=== PATIENT | male | born 1965 | race Caucasian/White ===

== ENCOUNTER 2018-11-15 13:56 | Emergency (ER) | payer BC ==
[2018-11-15] MEDS ORDERED: Bacitracin Oint 1 GM U/D Packet TOP ONE (14:17)
[2018-11-15] MEDS ORDERED: Diphtheria,Pertussis(Acell),Tetanus Vaccine 0.5 ML SDV IM ONE (14:17)
[2018-11-15] MEDS ORDERED: Lidocaine 1% 30 ML SDV INJECT ONE (14:17)
[2018-11-15] MEDS ORDERED: Acetaminophen/HYDROcodone 325-5 MG Tab PO ONE (14:53)
--- NOTE | 2018-11-15 14:58 | CR ---
Clinical history: 53-year-old male injured tilted dropped on toe. Interpretation: Abnormal. Transverse a motion of the terminal tuft distal phalanx right great toe and distal half of the distal phalanx adjacent second toe. Associated soft tissue swelling. Neuroma or old surgery eroding the head of the third metatarsal. Chronic arthritic changes first metatarsal-phalangeal and DIP joints of the right forefoot. Leta's bunion lateral aspect. CONCLUSION: Terminal tuft fracture distal phalanx right great and adjacent second toes.
--- NOTE | 2018-11-15 15:32 | EDM.PDOC ---
ED HPI GENERAL MEDICAL PROBLEM - General Chief Complaint: Lower Extremity Injury/Pain Stated Complaint: HYDROLIC LIFT FELL ON FOOT/TOES Time Seen by Provider: 11/15/18 14:20 Source of Information: Reports: Patient, Family, RN, RN Notes Reviewed History Limitations: Reports: No Limitations - History of Present Illness INITIAL COMMENTS - FREE TEXT/NARRATIVE: Pt to ER with c/o pain to right great toe and foot. Pt states he dropped a hydraulic lift on the right foot. Patient states this occurred about 1100. Pt states he has not had a tetanus shot in the last 10 years. Rates pain 8/10 at times, down to 4/10 at times. Onset: Today, Sudden Right Feet Pain Score (Numeric/FACES): 6 - Related Data Allergies Allergy/AdvReac Type Severity Reaction Status Date / Time No Known Allergies Allergy Verified 11/15/18 14:09 Home Meds: Home Meds Naproxen Sodium [Aleve] 440 mg PO DAILY 11/15/18 [History] Past Medical History HEENT History: Reports: Impaired Vision Other HEENT History: wears glasses Cardiovascular History: Reports: None Respiratory History: Reports: None Gastrointestinal History: Reports: None Genitourinary History: Reports: None Musculoskeletal History: Reports: Arthritis Neurological History: Reports: None Psychiatric History: Reports: None Endocrine/Metabolic History: Reports: None Hematologic History: Reports: None Immunologic History: Reports: None Oncologic (Cancer) History: Reports: None Dermatologic History: Reports: None - Infectious Disease History Infectious Disease History: Reports: Chicken Pox, Shingles - Past Surgical History Head Surgeries/Procedures: Reports: None GI Surgical History: Reports: Appendectomy, Hernia Repair/Other Musculoskeletal Surgical History: Reports: Shoulder Surgery Other Musculoskeletal Surgeries/Procedures:: broken wrist Social & Family History - Tobacco Use Smoking Status *Q: Current Every Day Smoker Years of Tobacco use: 43 Packs/Tins Daily: 1 Second Hand Smoke Exposure: No - Caffeine Use Caffeine Use: Reports: Coffee - Recreational Drug Use Recreational Drug Use: No Review of Systems - Review of Systems Review Of Systems: ROS reveals no pertinent complaints other than HPI. ED EXAM, GENERAL - Physical Exam Exam: See Below Exam Limited By: No Limitations General Appearance: Alert, WD/WN, Moderate Distress Eye Exam: Bilateral Eye: EOMI, Normal Inspection Ears: Normal External Exam, Hearing Grossly Normal Nose: Normal Inspection Throat/Mouth: Normal Inspection, Normal Voice, No Airway Compromise Head: Atraumatic, Normocephalic Neck: Normal Inspection, Supple, Non-Tender, Full Range of Motion Respiratory/Chest: No Respiratory Distress, Lungs Clear, Normal Breath Sounds, No Accessory Muscle Use, Chest Non-Tender Cardiovascular: Normal Peripheral Pulses, Regular Rate, Rhythm, No Edema, No Gallop, No JVD, No Murmur, No Rub Peripheral Pulses: 2+: Radial (L), Radial (R), Dorsalis Pedis (R) GI/Abdominal: Normal Bowel Sounds, Soft, Non-Tender, No Distention (Male) Exam: Deferred Rectal (Males) Exam: Deferred Back Exam: Normal Inspection, Full Range of Motion, NT Extremities: Limited Range of Motion (right 1st and 2nd toes), Other (pain right 1st and 2nd toes) Neurological: Alert, Oriented, CN II-XII Intact, Normal Cognition, Normal Gait, Normal Reflexes, No Motor/Sensory Deficits Psychiatric: Normal Affect, Normal Mood Skin Exam: Warm, Dry, No Rash, Other (crush injury to the right great toe and 2nd toe. Toe nail loose on the great toe, open area on the medial aspect of the great toe. 2nd toe is swollen and bruised.) Lymphatic: No Adenopathy ED TRAUMA EXTREMITY PROCEDURES - Laceration/Wound Repair Right Medial Toe - Great Lac/Wound Length In cm: 1 Appearance: Superficial, Subcutaneous Distal NVT: Neuro & Vascular Intact Anesthetic Type: Local Local Anesthesia - Lidocaine (Xylocaine): 1% Plain Local Anesthetic Volume: Other (8, digital block done for the second toe for movement during procedure) Skin Prep: Chlorhexidine (Hibiciens) Exploration/Debridement/Repair: Wound Explored, In a Bloodless Field, Explored to Base, No Foreign Material Found Closed With: Sutures Suture Size: 4-0 # of Sutures: 2 Suture Type: Nylon, Interrupted Drain Placement: No Sterile Dressing Applied: Provider Tetanus Status Addressed: Yes Complications: Yes Complication Description: Very painful for the patient Course - Vital Signs Last Recorded V/S: Last Vital Signs Temp 98.9 F 11/15/18 15:24 Pulse 86 11/15/18 15:24 Resp 18 11/15/18 15:24 BP 132/85 11/15/18 15:24 Pulse Ox 100 11/15/18 15:24 - Orders/Labs/Meds Orders: Active Orders 24 hr Category Date Time Status Vaccines to be Administered [RC] PER UNIT ROUTINE Care 11/15/18 14:17 Active Meds: Medications Discontinued Medications Generic Name Dose Route Start Last Admin Trade Name Enrike PRN Reason Stop Dose Admin Hydrocodone Bitart/Acetaminophen 1 tab 11/15/18 14:53 11/15/18 14:57 [place] 325-5 Mg PO 11/15/18 14:54 1 tab ONETIME ONE Administration Bacitracin 1 dose 11/15/18 14:17 11/15/18 14:45 Bacitracin Oint 1 Gm TOP 11/15/18 14:18 1 dose ONETIME ONE Administration Diphtheria/Tetanus/Acell Pertussis 0.5 ml 11/15/18 14:17 11/15/18 14:47 Adacel IM 11/15/18 14:18 0.5 ml .ONCE ONE Administration Lidocaine HCl 30 ml 11/15/18 14:17 11/15/18 14:45 Xylocaine-Mpf 1% INJECT 11/15/18 14:18 30 ml ONETIME ONE Administration - Radiology Interpretation Free Text/Narrative:: Right toe xray: Terminal tuft fracture distal phalanx right great and adjacent second toes. See rad report Departure - Departure Time of Disposition: 15:25 Disposition: Home, Self-Care 01 Condition: Fair Clinical Impression: Injury of nail bed of toe Open fracture of great toe Qualifiers: Encounter type: initial encounter Phalanx: distal Fracture alignment: nondisplaced Laterality: right Qualified Code(s): S92.424B - Nondisplaced fracture of distal phalanx of right great toe, initial encounter for open fracture Closed fracture of second toe of right foot Qualifiers: Encounter type: initial encounter Qualified Code(s): S92.501A - Displaced unspecified fracture of right lesser toe(s), initial encounter for closed fracture Crush injury of toe Qualifiers: Encounter type: initial encounter Laterality: right Qualified Code(s): S97.101A - Crushing injury of unspecified right toe(s), initial encounter - Discharge Information *PRESCRIPTION DRUG MONITORING PROGRAM REVIEWED*: No *COPY OF PRESCRIPTION DRUG MONITORING REPORT IN PATIENT STEPHANIE: No Instructions: Toe Fracture, [id number] Referrals: PCP,None [Primary Care Provider] - Forms: ED Department Discharge Additional Instructions: Keep area clean and dry Call to make an appointment with podiatry Dr. Kaur [facility] [phone] [facility] [phone], ask for appointment in [place] if possible RX: Cephalexin, [place] May use Ibuprofen as directed for pain Use minimal Tylenol when using the [place] Elevate and ice the area as tolerated Use the orthotic shoe when up and around No work until Monday - My Orders Last 24 Hours: My Active Orders 11/15/18 14:17 Vaccines to be Administered [RC] PER UNIT ROUTINE - Assessment/Plan Last 24 Hours: My Active Orders 11/15/18 14:17 Vaccines to be Administered [RC] PER UNIT ROUTINE
== END 2018-11-15 15:43 | disposition home or self-care (01) ==
LOC: DL.ED 13:56
DX: S97.111A Crushing injury of right great toe, initial encounter (principal); S97.121A Crushing injury of right lesser toe(s), initial encounter; S92.424B Nondisplaced fracture of distal phalanx of right great toe, initial encounter for open fracture; S92.531A Displaced fracture of distal phalanx of right lesser toe(s), initial encounter for closed fracture; M19.90 Unspecified osteoarthritis, unspecified site; F17.210 Nicotine dependence, cigarettes, uncomplicated; Z23 Encounter for immunization; Z90.49 Acquired absence of other specified parts of digestive tract; W20.8XXA Other cause of strike by thrown, projected or falling object, initial encounter
CPT/HCPCS: 12001; 73660; 90471; 90715; 99282; A9270; J2001; 12011